=== PATIENT | female | born 1970 | race American Indian/Alaskan Native ===

== ENCOUNTER 2017-08-11 17:46 | Emergency (ER) | payer BC ==
[2017-08-11] MEDS ORDERED: NACL 0.9% 500 ML 500 ML IV ONE (18:59)
[2017-08-11] MEDS ORDERED: TYLENOL PO STA (18:59)
[2017-08-11 19:56] LABS: Bacteria,Urine 1+ /HPF (Negative); Bilirubin,Urine SM (Negative); Blood,Urine NEG (Negative); Calcium Oxalate Crystals,Urine 3+; Color,Urine Amber (Yellow); Mucus,Urine 3+ /HPF; Nitrite,Urine NEG (Negative)
[2017-08-11 19:58] LABS: Ictotest,Urine Negative (Negative)
[2017-08-11 19:58] LABS: Alanine Aminotransferase 19 units/L (7-56); Albumin 4.1 g/dL (3.9-5); BUN/Creatinine Ratio 9; Blood Urea Nitrogen 6 mg/dL (7-17); Calcium 9.3 mg/dL (8.4-10.2); Hemolysis Index 7
[2017-08-11 19:59] LABS: Hematocrit 41.3 % (30.3-42.9); Hemoglobin 14.1 gm/dl (10.1-14.3); Mean Corpuscular HGB Conc 34 % (30-34); Mean Corpuscular Hemoglobin 31 pg (28-32); Mean Corpuscular Volume 91 fl (79-97); Platelet Count 334 K/mm3 (140-440); Red Blood Count 4.53 M/mm3 (3.65-5.03); Red Cell Distribution Width 14.6 % (13.2-15.2)
[2017-08-11 20:13] LABS: INR 1.06 (0.87-1.13)
[2017-08-11 20:30] LABS: Band Neutrophils # (Manual) 0.6 K/mm3; Basophils % (Manual) 0 % (0.0-1.8); Total Cells Counted 100
[2017-08-11 20:31] LABS: Ovalocytes Few; Platelet Estimate Consistent w Auto
[2017-08-12] MEDS ORDERED: MOTRIN PO ONE (00:17)
[2017-08-12] MEDS ORDERED: NACL 0.9% 1000 ML IV ONE (00:18)
[2017-08-12] MEDS ORDERED: NACL 0.9% 1000 ML 1,000 ML ONE (00:22)
[2017-08-12 00:46] VITALS: BP 152/69
[2017-08-12] MEDS ORDERED: DUONEB *Not for PRN Use IH ONE ×3 (01:27→03:02)
[2017-08-12] MEDS ORDERED: ROBITUSSIN PO ONE (03:02)
[2017-08-12] MEDS ORDERED: ROBITUSSIN ONE (03:05)
--- NOTE | 2017-08-12 05:12 | Emergency Department Report ---
- General Chief Complaint: Upper Respiratory Infection Stated Complaint: FLU LIKE SYMPTOMS Source: patient Mode of arrival: Ambulatory Limitations: No Limitations - History of Present Illness MD Complaint: fever, cough, sore throat, rhinorrhea, nasal congestion, sinus pain -: days(s) (2-3 days) Severity: moderate Severity scale (0 -10): 10 Quality: burning Consistency: constant Improves With: nothing Worsens With: nothing Associated Symptoms: fever, chills, cough, nausea - Related Data Previous Rx's Medication Instructions Recorded Last Taken Type Acetaminophen/Codeine 1 tab PO Q6H PRN #10 tab 10/10/14 Unknown Rx [Acetaminophen-Codeine #3 TAB] Cyclobenzaprine [Flexeril 10mg] 10 mg PO TID PRN #20 tablet 10/10/14 Unknown Rx Acetaminophen 1,000 mg PO Q8HR PRN 3 Days #10 08/12/17 Unknown Rx tablet Benzonatate [Tessalon Perles] 200 mg PO Q8HR PRN 10 Days #60 08/12/17 Unknown Rx capsule Fluticasone [Flonase] 2 spray NS QDAY PRN #1 bottle 08/12/17 Unknown Rx guaiFENesin/CODEINE [Robitussin AC] 10 ml PO Q6HR PRN #120 bottle 08/12/17 Unknown Rx Allergies Allergy/AdvReac Type Severity Reaction Status Date / Time Penicillins Allergy Anaphylaxis Verified 10/10/14 14:32 ED Review of Systems ROS: Stated complaint: FLU LIKE SYMPTOMS Other details as noted in HPI Comment: All other systems reviewed and negative Constitutional: no symptoms reported Eyes: as per HPI, eye discharge Respiratory: cough Cardiovascular: as per HPI Endocrine: no symptoms reported Gastrointestinal: as per HPI Genitourinary: as per HPI Musculoskeletal: as per HPI Skin: as per HPI Neurological: as per HPI Psychiatric: as per HPI Hematological/Lymphatic: as per HPI ED Past Medical Hx - Past Medical History Hx Hypertension: Yes Hx CVA: No Hx Heart Attack/AMI: No Hx Congestive Heart Failure: No Hx Diabetes: No Hx Deep Vein Thrombosis: No Hx Pulmonary Embolism: No Hx GERD: No Hx Liver Disease: No Hx Renal Disease: No Hx of Cancer: No Hx Sickle Cell Disease: No Hx Arthritis: No Hx Headaches / Migraines: No Hx Seizures: No Hx Kidney Stones: No Hx Psychiatric Treatment: No Hx Asthma: No Hx COPD: No Additional medical history: crohns - Surgical History Past Surgical History?: No Hx Coronary Stent: No Hx Open Heart Surgery: No Hx Pacemaker: No Hx Internal Defibrillator: No Hx Cholecystectomy: No Hx Appendectomy: No Hx Breast Surgery: No - Social History Smoking Status: Unknown if ever smoked Substance Use Type: None - Medications Home Medications: Home Medications Medication Instructions Recorded Confirmed Last Taken Type Acetaminophen/Codeine 1 tab PO Q6H PRN #10 tab 10/10/14 Unknown Rx [Acetaminophen-Codeine #3 TAB] Cyclobenzaprine [Flexeril 10mg] 10 mg PO TID PRN #20 tablet 10/10/14 Unknown Rx Acetaminophen 1,000 mg PO Q8HR PRN 3 Days #10 08/12/17 Unknown Rx tablet Benzonatate [Tessalon Perles] 200 mg PO Q8HR PRN 10 Days #60 08/12/17 Unknown Rx capsule Fluticasone [Flonase] 2 spray NS QDAY PRN #1 bottle 08/12/17 Unknown Rx guaiFENesin/CODEINE [Robitussin AC] 10 ml PO Q6HR PRN #120 bottle 08/12/17 Unknown Rx ED Physical Exam - General Limitations: No Limitations General appearance: alert - Head Head exam: Present: normocephalic - Eye Eye exam: Present: PERRL, EOMI, conjunctival injection Pupils: Present: normal accommodation - ENT ENT exam: Present: normal external ear exam. Absent: TM's normal bilaterally ( left ear erythema noted ) - Respiratory Respiratory exam: Present: normal lung sounds bilaterally - Cardiovascular Cardiovascular Exam: Present: tachycardia, normal heart sounds - Neurological Exam Neurological exam: Present: alert, oriented X3 - Skin Skin exam: Present: warm, dry, intact ED Course Vital Signs 08/11/17 08/11/17 08/11/17 18:56 19:15 22:42 Temperature 103 F H 99.6 F Pulse Rate 103 H 110 H Respiratory 18 18 18 Rate Blood Pressure 177/78 Blood Pressure 135/78 [Right] O2 Sat by Pulse 100 96 Oximetry 08/12/17 00:30 Temperature 99.2 F Pulse Rate 88 Respiratory 18 Rate Blood Pressure Blood Pressure 152/69 [Right] O2 Sat by Pulse 97 Oximetry ED Medical Decision Making - Lab Data Result diagrams: 08/11/17 19:19 08/11/17 19:19 - Medical Decision Making Dorys is a 47-year-old -[place] female who presents to the emergency room complaining of flu- like symptoms. She endorses fever, chills, cough, sore throat, and nausea. Onset of symptoms began 08/08/2017. Since then patient reports that she has taken [id number] medications, which has provided minimal relief. Upon physical examination bilateral ears normal in appearance, TM intact, left TM mildly injected. PERRLA. EOM intact. Pharynx with erythema. Tonsils 2+, no exudate noted. Influenza A and B was ordered. Patient tested positive for influenza A. Chest x-ray ordered. No consolidation noted. No signs of pneumonia indicated. Vital signs improved. Pulse decreased 88 and temperature decreased to 99.2. Patient diagnosed with influenza A. Currently symptoms have been present for 48 hours. Patient refuses Tamiflu. Patient given Guaifenesin when necessary for cough. Tessalon Perles as needed for cough. Flonase when necessary. Critical care attestation.: If time is entered above; I have spent that time in minutes in the direct care of this critically ill patient, excluding procedure time. ED Disposition Clinical Impression: Influenza A, Cough Pharyngitis Qualifiers: Pharyngitis/tonsillitis etiology: unspecified etiology Qualified Code(s): J02.9 - Acute pharyngitis, unspecified Disposition: - TO HOME OR SELFCARE Is pt being admited?: No Does the pt Need Aspirin: No Condition: Stable Instructions: Influenza (ED), Pharyngitis (ED) Additional Instructions: Patient instructed to rest and stay hydrated. Encouraged to drink plenty of fluids. Take medication as prescribed. Informed to monitor signs and symptoms. If symptoms are to worsen or do not improve patient is to return to the emergency room. Patient made aware to follow up with PCP in 2-4 days. Prescriptions: Acetaminophen 1,000 mg PO Q8HR PRN 3 Days #10 tablet PRN Reason: Fever Benzonatate [Tessalon Perles] 200 mg PO Q8HR PRN 10 Days #60 capsule PRN Reason: Cough Fluticasone [Flonase] 2 spray NS QDAY PRN #1 bottle PRN Reason: Congestion guaiFENesin/CODEINE [Robitussin AC] 10 ml PO Q6HR PRN #120 bottle PRN Reason: Cough Referrals: GARY SARGENT MD [Primary Care Provider] - 3-5 Days TAMIKA SHERIFF MD [Staff Physician] - 3-5 Days
--- NOTE | 2017-08-12 09:17 | XRay Report ---
FINAL REPORT PROCEDURE: XR CHEST ROUTINE 2V TECHNIQUE: Frontal and lateral views of the chest are submitted. HISTORY: shortness of breath COMPARISON: None FINDINGS: The trachea is midline. The heart is normal in size. The lungs are clear. There is no evident pneumothorax or pleural fluid. The thoracic cage is intact. IMPRESSION: No radiographically evident acute cardiopulmonary disease
== END 2017-08-12 06:27 | disposition home or self-care (01) ==
LOC: ED 17:46
DX: J09.X2 Influenza due to identified novel influenza A virus with other respiratory manifestations (principal); J02.9 Acute pharyngitis, unspecified; I10 Essential (primary) hypertension; Z88.0 Allergy status to penicillin
CPT/HCPCS: 36415; 71046; 80053; 81001; 82140; 82805; 85007; 85025; 85610; 87040; 87086; 87400; 93005; 93010; 96360; 99285; J7030